=== PATIENT | female | born 1975 | race Two or more races ===

== ENCOUNTER 2022-10-25 18:46 | Emergency (ER) | payer BC ==
[~2022-10-25] VITALS: Ht 165.1 cm; Wt 44.0 kg
[~2022-10-25 18:46] MED LIST: ZOLP5TAB2
--- NOTE | 2022-10-25 19:36 | NUR ---
BIBS SENT FROM URGENT CARE FOR HEADACHE AND SINUS PRESSURE X 10 DAYS ADMITS TO NAUSEA, DENIES VOMITING AND FEVERS . PAIN 01/01
[2022-10-25] MEDS ORDERED: ACETAMINOPHEN ES 500 MG TABLET ONE (20:14)
[2022-10-25] MEDS ORDERED: PROCHLORPERAZINE EDISYLATE 10 MG/2 ML VIAL ONE (20:14)
[2022-10-25] MEDS ORDERED: diphenhydrAMINE HCL 50 MG/ML VIAL ONE (20:14)
--- NOTE | 2022-10-25 20:14 | NUR ---
20G IV STARTED ON L AC
--- NOTE | 2022-10-25 20:19 | NUR ---
MEDICATIONS ADMINISTERED ORDERED
--- NOTE | 2022-10-25 20:21 | NUR ---
URINE COLLECTED AND SENT TO LAB
[2022-10-25] MEDS ORDERED: diphenhydrAMINE HCL 50 MG/ML VIAL IV ONE (20:30)
[2022-10-25] MEDS ORDERED: PROCHLORPERAZINE EDISYLATE 10 MG/2 ML VIAL IVP ONE (20:30)
[2022-10-25] MEDS ORDERED: IV NS 0.9% 1,000 ML BAG IV ONE (20:30)
[2022-10-25] MEDS ORDERED: ACETAMINOPHEN ES 500 MG TABLET PO ONE (20:30)
[2022-10-25] MEDS ORDERED: KETOROLAC TROMETHAMINE INJ 30 MG/ML VIAL IV ONE (22:00)
[2022-10-25] MEDS ORDERED: KETOROLAC TROMETHAMINE INJ 30 MG/ML VIAL ONE (22:14)
[2022-10-25] MEDS ORDERED: PROC-11 PO (23:04)
[2022-10-25] MEDS ORDERED: SUMA100T16 PO (23:04)
[2022-10-25] MEDS ORDERED: KETO10TA2 PO (23:04)
[2022-10-25 23:22] VITALS: BP 136/96
--- NOTE | 2022-10-25 23:22 | NUR ---
Patient discharged to home in stable condition. Written and verbal after care instructions given. Patient verbalizes understanding of instruction.IV removed. Catheter intact and site benign. Pressure and 4x4 applied to site. No bleeding noted.
== END 2022-10-25 23:23 | disposition home or self-care (01) ==
LOC: ER 18:50
DX: R51.9 Headache, unspecified (principal); J45.909 Unspecified asthma, uncomplicated; Z88.1 Allergy status to other antibiotic agents; Z79.899 Other long term (current) drug therapy
CPT/HCPCS: 99284; 96374; 96361; 96375; 84703; J0780; J1200; J1885